=== PATIENT | male | born 1930 | race Caucasian/White ===

== ENCOUNTER 2018-07-13 14:02 | Observation (INO) ==
--- NOTE | 2018-07-13 14:22 | ED ---
HPI General Chief complaint: Weakness Stated complaint: Unsteady/lightheaded x3am Time Seen by Provider: 07/13/18 14:19 Source: patient and family Mode of arrival: wheelchair Limitations: no limitations History of Present Illness HPI Narrative: According to patient he has been developing generalized weakness since approximately 3 AM in the morning, when he attempted to get up and go use the bathroom. During this timeframe he nearly fell down on his way to the bathroom he had to hold onto the wall to avoid that....specifically denies . He is independently walking capable of this is new for him. Patient denied having any headaches, any slurred speech, any visual changes, any chest pain, any cough, any URI symptoms, any back pain abdominal pain nausea vomiting or diarrhea. MD Complaint: Reports generalized weakness and difficulty walking Onset (ago): hour(s) (12hrs) Duration: progressively worsening Location: Reports generalized Relieving factors: none Exacerbating factors: movement (Intubation he nearly falls when he tries to ambulate) Associated symptoms: Reports denies other symptoms; Denies chest pain, dark stools, diaphoresis, headaches, rash and syncope Related Data Home Medications Medication Instructions Recorded Confirmed Vitamin D3 07/13/18 amlodipine 10 mg PO DAILY 07/13/18 07/13/18 aspirin 325 mg PO DAILY 07/13/18 07/13/18 buspirone 5 mg PO DAILY 07/13/18 07/13/18 carvedilol 12.5 mg PO BID 07/13/18 07/13/18 coQ10 (ubiquinol) 07/13/18 furosemide [Lasix] 20 mg PO DAILY PRN 07/13/18 07/13/18 ipratropium bromide 2 spray INTRANASAL BID 07/13/18 07/13/18 montelukast 10 mg PO QPM 07/13/18 07/13/18 niacin 500 mg PO DAILY 07/13/18 07/13/18 oxycodone-acetaminophen 1 tab PO Q6H PRN 07/13/18 07/13/18 pravastatin 20 mg PO DAILY 07/13/18 07/13/18 timolol maleate 1 drp OPHTHALMIC (EYE) BID 07/13/18 07/13/18 Allergies Allergy/AdvReac Type Severity Reaction Status Date / Time naproxen Allergy Severe Chest Pain Verified 07/13/18 14:13 pitavastatin [From Livalo] Allergy Severe Hives Verified 07/13/18 14:20 simvastatin Allergy Severe Hiccups Verified 07/13/18 14:13 Review of Systems ROS: all other systems reviewed are negative [facility] History History Provided By: Patient Medical History Medical History History of CVA in adulthood (Acute) History of high cholesterol (Acute) Hx of coronary artery disease (Acute) Hx of primary hypertension (Acute) Surgical History Surgical History History of quadruple bypass (Acute) Hx of appendectomy (Acute) Hx of bilateral cataract extraction (Acute) Social History Social History Substance History: No History of Abuse Second Hand Smoke Exposure: No Smoking Status: Former smoker Tobacco Type: Cigarettes How Often Do You Have a Drink Containing Alcohol: Monthly or less Recent Travel in [facility] within the Last 8 Weeks: No Recent Out of Country Travel within the Last 8 Weeks: No Exam Narrative Exam Narrative: GENERAL: Elderly male, hard of hearing SKIN: Focused skin assessment warm/dry. HEAD: Atraumatic. Normocephalic. EYES: Pupils equal and round. No scleral icterus. No injection or drainage. ENT: No nasal bleeding or discharge. Mucous membranes pink and moist. NECK: Trachea midline. No JVD. CARDIOVASCULAR: Regular rate and rhythm. No murmur appreciated. RESPIRATORY: No accessory muscle use. Clear to auscultation. Breath sounds equal bilaterally. GASTROINTESTINAL: Abdomen soft, non-tender, nondistended. Hepatic and splenic margins not palpable. MUSCULOSKELETAL: No obvious deformities. No clubbing. No cyanosis. No edema. NEUROLOGICAL: Awake, alert and oriented x4. No obvious cranial nerve deficits. Motor grossly within normal limits. Normal speech. Patient has smooth rapid alternating movements, patient has smooth finger to nose, patient also has smooth heel to manzano. However patient is unable to perform tandem walking, and has a difficult time going from sitting to standing without some support PSYCHIATRIC: Appropriate mood and affect; insight and judgment normal. Course Initial Documented Vital Signs Temperature 98.3 F 07/13/18 14:09 Pulse Rate 76 07/13/18 14:09 Respiratory Rate 16 07/13/18 14:09 Blood Pressure 107/79 07/13/18 14:09 Pulse Oximetry 96 07/13/18 14:09 Last Documented Vital Signs Temperature 98.3 F 07/13/18 14:09 Pulse Rate 79 07/13/18 14:12 Respiratory Rate 16 07/13/18 14:12 Blood Pressure 136/93 H 07/13/18 14:12 Pulse Oximetry 95 07/13/18 14:19 Medical Decision Making MDM Narrative Medical decision making narrative: Lab interpretation: CBC shows no evidence of any leukocytosis anemia or abnormal platelet count. No left shift noted UA is negative for UTI Lecture lites are within normal limits, normal kidney liver and pancreatic functions. normal first set of cardiac enzymes negative, normal beta natruretic peptide. TSH screen Although in the normal range dangerously close to the lower Head CT read by radiologist as negative CT head noncontrast except diffuse atrophy. on reevaluation patient's condition remains unchanged....presented to dr ulloa who kindly accepted patient for admission Medical Screen Exam Complete: Yes Emergency Medical Condition: Yes Differential Diagnosis Differential Diagnosis: CVA versus TIA versus ICH versus STEMI versus non-STEMI versus UTI versus pneumonia versus electrolyte imbalance Medical Records Medical records reviewed: Yes I reviewed the patient's medical records. Patient's school speech language pathologist is Patient's primary care is [facility] Patient's neurologist Dr. Ryder Patient has an extensive cardiac history including hypercholesterolemia, hypertension, quadruple bypass/CABG, appendectomy, cataract extraction, CVA. Lab Data Lab results reviewed: Yes I reviewed the patient's lab results. Result diagrams: 07/13/18 14:35 07/13/18 14:35 Lab Results 07/13/18 07/13/18 07/13/18 Range/Units 14:35 14:35 14:35 CBC w Diff Auto diff final WBC 7.8 (4.0-11.0) th/mm3 RBC 4.51 (4.50-5.90) mil/mm3 Hgb 14.9 (13.0-17.0) gm/dL Hct 44.1 (39.0-51.0) % MCV 97.9 (80.0-100.0) fL MCH 33.0 (27.0-34.0) pg MCHC 33.7 (32.0-36.0) % RDW 12.9 (11.6-17.2) % Plt Count 213 (150-450) th/mm3 MPV 8.1 (7.0-11.0) fL Neut % (Auto) 70.6 H (16.0-70.0) % Lymph % (Auto) 16.3 (9.0-44.0) % [place] % (Auto) 9.6 H (0.0-8.0) % Eos % (Auto) 2.9 (0.0-4.0) % Baso % (Auto) 0.6 (0.0-2.0) % Neut # (Auto) 5.6 (1.8-7.7) th/mm3 Lymph # (Auto) 1.3 (1.0-4.8) th/mm3 [place] # (Auto) 0.7 (0.0-0.9) th/mm3 Eos # (Auto) 0.2 (0.0-0.4) th/mm3 Baso # (Auto) 0.0 (0.0-0.2) th/mm3 WBC Differential . Differential Comment . Sodium 136 (136-145) meq/L Potassium 3.9 (3.5-5.1) meq/L Chloride 104 (98-107) meq/L Carbon Dioxide 25.6 (21.0-32.0) meq/L Anion Gap 6 (5-15) meq/L BUN 14 (7-18) mg/dL Creatinine 0.96 (0.60-1.30) mg/dL Estimated GFR 74 L (>89) mL/min Random Glucose 161 H (74-106) mg/dL Calcium 8.2 L (8.5-10.1) mg/dL Total Bilirubin 0.3 (0.2-1.0) mg/dL AST 30 (15-37) U/L ALT 39 (12-78) U/L Alkaline Phosphatase 286 H (45-117) U/L Total Creatine Kinase 83 (39-308) U/L Troponin I Less than 0.02 L (0.02-0.05) ng/mL B-Natriuretic Peptide 101 H (0-100) pg/mL Total Protein 7.2 (6.4-8.2) g/dL Albumin 3.7 (3.4-5.0) g/dL TSH 0.726 (0.358-3.740) uIU/mL Ur Collection Type Urine Color (Yellw/Straw) Urine Clarity (Clear) Urine pH (5.0-8.5) Ur Specific [place] (1.002-1.035) Urine Protein (Neg-Trace) mg/dL Urine Glucose (UA) (Negative) mg/dL Urine Ketones (Negative) mg/dL Urine Occult Blood (Negative) Urine Nitrate (Negative) Urine Bilirubin (Negative) Urine Urobilinogen (Less than 2) mg/dL Ur Leukocyte Esterase (Negative) Ur Squamous Epith Cells (0-5) /hpf Micro UA Comment Ur Microscopic Review Urine Culture Comments Urine Collection Time hours 07/13/18 Range/Units 14:35 CBC w Diff WBC (4.0-11.0) th/mm3 RBC (4.50-5.90) mil/mm3 Hgb (13.0-17.0) gm/dL Hct (39.0-51.0) % MCV (80.0-100.0) fL MCH (27.0-34.0) pg MCHC (32.0-36.0) % RDW (11.6-17.2) % Plt Count (150-450) th/mm3 MPV (7.0-11.0) fL Neut % (Auto) (16.0-70.0) % Lymph % (Auto) (9.0-44.0) % [place] % (Auto) (0.0-8.0) % Eos % (Auto) (0.0-4.0) % Baso % (Auto) (0.0-2.0) % Neut # (Auto) (1.8-7.7) th/mm3 Lymph # (Auto) (1.0-4.8) th/mm3 [place] # (Auto) (0.0-0.9) th/mm3 Eos # (Auto) (0.0-0.4) th/mm3 Baso # (Auto) (0.0-0.2) th/mm3 WBC Differential Differential Comment Sodium (136-145) meq/L Potassium (3.5-5.1) meq/L Chloride (98-107) meq/L Carbon Dioxide (21.0-32.0) meq/L Anion Gap (5-15) meq/L BUN (7-18) mg/dL Creatinine (0.60-1.30) mg/dL Estimated GFR (>89) mL/min Random Glucose (74-106) mg/dL Calcium (8.5-10.1) mg/dL Total Bilirubin (0.2-1.0) mg/dL AST (15-37) U/L ALT (12-78) U/L Alkaline Phosphatase (45-117) U/L Total Creatine Kinase (39-308) U/L Troponin I (0.02-0.05) ng/mL B-Natriuretic Peptide (0-100) pg/mL Total Protein (6.4-8.2) g/dL Albumin (3.4-5.0) g/dL TSH (0.358-3.740) uIU/mL Ur Collection Type Clean catch Urine Color Yellow (Yellw/Straw) Urine Clarity Clear (Clear) Urine pH 7.0 (5.0-8.5) Ur Specific [place] 1.010 (1.002-1.035) Urine Protein Negative (Neg-Trace) mg/dL Urine Glucose (UA) Negative (Negative) mg/dL Urine Ketones Negative (Negative) mg/dL Urine Occult Blood Negative (Negative) Urine Nitrate Negative (Negative) Urine Bilirubin Negative (Negative) Urine Urobilinogen 0.2 (Less than 2) mg/dL Ur Leukocyte Esterase Negative (Negative) Ur Squamous Epith Cells 0-5 (0-5) /hpf Micro UA Comment Culture not ind Ur Microscopic Review Microscopic reviewed Urine Culture Comments Culture not ind Urine Collection Time 1435 hours Imaging Data Attestation: I personally reviewed and interpreted this imaging study as follows : Radiologist's impression: Head CT 07/13/18 14:19 CONCLUSION: 1. Negative CT Head non contrast except diffuse atrophy. . ECG Data EKG Prior to Arrival: No Attestation: I personally reviewed and interpreted this ECG as follows: Prior ECG tracings: not available for review Interpretation: Normal sinus rhythm, 74 bpm, left axis deviation, no acute ST elevation KS pattern noted. Discharge Plan Discharge Disposition Patient Disposition: 30 Still Patient Discharge Condition Condition: Stable Discharge Details Diagnosis: Weakness Physicians Team ED Provider: Rubin Huang Primary Care Provider: Mode Fox Rxs /Orders / Referrals /Forms Prescriptions: No Action buspirone 5 mg Tablet 5 mg PO DAILY RF: 0 carvedilol 12.5 mg Tablet 12.5 mg PO BID RF: 0 aspirin 325 mg Tablet 325 mg PO DAILY RF: 0 amlodipine 10 mg Tablet 10 mg PO DAILY RF: 0 timolol maleate 0.25 % Drops 1 drp OPHTHALMIC (EYE) BID RF: 0 niacin 500 mg Tablet 500 mg PO DAILY RF: 0 montelukast 10 mg Tablet 10 mg PO QPM RF: 0 pravastatin 20 mg Tablet 20 mg PO DAILY RF: 0 furosemide [Lasix] 20 mg Tablet 20 mg PO DAILY PRN (Reason: Edema) RF: 0 ipratropium bromide 0.03 % [place],Non-Aerosol 2 spray INTRANASAL BID RF: 0 coQ10 (ubiquinol) 100 mg Capsule RF: 0 Vitamin D3 RF: 0 oxycodone-acetaminophen 10-325 mg Tablet 1 tab PO Q6H PRN (Reason: Pain (Scale Score 7-10)) RF: 0 Status ED Status: Pending Admission
[2018-07-13 14:43] LABS: Baso % (Auto) 0.6 % (0.0-2.0); Eos # (Auto) 0.2 th/mm3 (0.0-0.4); Eos % (Auto) 2.9 % (0.0-4.0); Hematocrit 44.1 % (39.0-51.0); Hemoglobin 14.9 gm/dL (13.0-17.0); Lymph # (Auto) 1.3 th/mm3 (1.0-4.8); Lymph % (Auto) 16.3 % (9.0-44.0); Mean Corpuscular HGB Conc 33.7 % (32.0-36.0); Mean Corpuscular Volume 97.9 fL (80.0-100.0); Mean Platelet Volume 8.1 fL (7.0-11.0); Mono # (Auto) 0.7 th/mm3 (0.0-0.9); Mono % (Auto) 9.6 % (0.0-8.0); Neut # (Auto) 5.6 th/mm3 (1.8-7.7); Neut % (Auto) 70.6 % (16.0-70.0); Platelet Count 213 th/mm3 (150-450); Red Blood Count 4.51 mil/mm3 (4.50-5.90); Red Cell Distribution Width 12.9 % (11.6-17.2); White Blood Count 7.8 th/mm3 (4.0-11.0)
[2018-07-13 14:48] LABS: Bilirubin,Urine Negative (Negative); Clarity,Urine Clear (Clear); Color,Urine Yellow (Yellw/Straw); Glucose,Urine (UA) Negative (Negative); Leukocyte Esterase,Urine Negative (Negative); Nitrite,Urine Negative (Negative); Urobilinogen,Urine 0.2 mg/dL (Less than 2)
[2018-07-13 14:50] LABS: Collection Time,Urine 1435 hours
[2018-07-13 14:51] LABS: Chloride 104 meq/L (98-107); Potassium 3.9 meq/L (3.5-5.1); Sodium 136 meq/L (136-145)
[2018-07-13 14:52] LABS: Squamous Epithelial Cell,Urine 0-5 /hpf (0-5)
[2018-07-13 14:54] LABS: Calcium 8.2 mg/dL (8.5-10.1)
[2018-07-13 14:55] LABS: Albumin 3.7 g/dL (3.4-5.0); Anion Gap 6 meq/L (5-15); Blood Urea Nitrogen 14 mg/dL (7-18); Carbon Dioxide 25.6 meq/L (21.0-32.0); Glucose,Random 161 mg/dL (74-106)
[2018-07-13 14:58] LABS: Alanine Aminotransferase 39 U/L (12-78); Aspartate Aminotransferase 30 U/L (15-37); Glomerular Filtration Rate 74 mL/min (>89)
[2018-07-13 15:00] LABS: Total Protein 7.2 g/dL (6.4-8.2)
[2018-07-13 15:01] LABS: Alkaline Phosphatase 286 U/L (45-117)
--- NOTE | 2018-07-13 15:01 | CT ---
EXAM DATE: 07/13/2018 2:57 PM EDT AGE/SEX: 87 years / Male INDICATIONS: Generalized weakness. CLINICAL DATA: This is the patient's initial encounter. Patient reports that signs and symptoms have been present for 1 day and indicates a pain score of 0/10. MEDICAL/SURGICAL HISTORY: Cardiovascular disease. Hypercholesterolemia. Cerebrovascular disease. Hypertension. Appendectomy. CABG. RADIATION DOSE: 51.79 CTDI (mGy) COMPARISON: No prior exams available for comparison. TECHNIQUE: CT of the head without contrast. Using automated exposure control and adjustment of the mA and/or kV according to patient size, radiation dose was kept as low as reasonably achievable to ob tain optimal diagnostic quality images. DICOM format image data is available electronically for revi ew and comparison. FINDINGS: Cerebrum: There is diffuse atrophy throughout the brain The ventricles are normal for age. No evide nce of midline shift, mass lesion, hemorrhage or acute infarction. No extraaxial fluid collections a re seen. Posterior Fossa: The cerebellum and brainstem are intact. The 4th ventricle is midline. The cerebe llopontine angle is unremarkable. Extracranial: The visualized portion of the orbits is intact. Skull: The calvaria is intact. No evidence of skull fracture. CONCLUSION: 1. Negative CT Head non contrast except diffuse atrophy. . Electronically signed by: Shashi Harrison MD 07/13/2018 2:59 PM EDT
[2018-07-13 15:07] LABS: Creatine Kinase 83 U/L (39-308)
[2018-07-13 15:09] LABS: Thyroid Stimulating Hormone 0.726 uIU/mL (0.358-3.740)
[2018-07-13] MEDS ORDERED: Insulin NovoLOG Aspart Correctional Sugar Inj SQ PRN (15:57)
[2018-07-13] MEDS ORDERED: Dextrose 50% in Water 50 ML Vial IV.PUSH PRN (15:57)
--- NOTE | 2018-07-13 16:20 | P.HPIM ---
History of Present Illness Service: [facility] Primary Care Physician: Mode Fox MD History of Present Illness: This is an 87-year-old male with past medical history significant for coronary artery disease with triple bypass, dyslipidemia, hypertension, and CVA. He presented to the [place] emergency room due to weakness and unsteady gait. His previous CVA overall recovered from this completely with no major residual side effects per patient and . Primary historian is patient with I had a detailed from . He reports that at this time he is feeling better. He states that his symptoms started this morning at 0300 when he got up to go to the bathroom. He felt very weak and dizzy and had to sit back down to regain his balance. He then went back to bed woke up and still continued to feel weak. Throughout the whole day today he has been having a worsening unsteady gait. And started reporting to his that he was having difficulty with feeling in the left side of his face. He also reports that his vision in his left eye had worsened as well during the day. He reports that now his symptoms are improving and he wants to get out of the hospital however he is willing to stay for further workup and to appease his . He denies any slurring of his speech. Denies any difficulty with finding words. He denies any more weakness but still does have the residual difficulty with vision in his left eye. Denies any headache, denies any lightheadedness, denies any weakness in his arms or legs at this point. - Diagnosis (1) TIA (transient ischemic attack) (2) Weakness Review of Systems Constitutional: Reports weakness, Denies body ache(s), Denies chills, Denies excessive sweating, Denies fever(s), Denies headache(s), Denies lack of energy, Denies night sweats, Denies weight loss Eyes: Reports blurry vision, Reports change in vision, Reports loss of vision, Denies blind spots, Denies bulging eyes, Denies double vision, Denies discharge , Denies irritation Ears, Nose, Mouth, and Throat: Reports dizziness, Reports poor balance, Denies abnormal hearing, Denies bleeding gums, Denies change in voice, Denies dry mouth , Denies ear pain, Denies hoarseness Cardiovascular: Denies chest pain, Denies chest pain at rest, Denies fainting, Denies generalized swelling, Denies irregular heart rhythm, Denies shortness of breath Respiratory: Denies chest congestion, Denies cough, Denies shortness of breath with activity Gastrointestinal: Denies abdominal pain, Denies black, tarry stools, Denies bloating, Denies change in bowel habits Musculoskeletal: Reports abnormal walking, Reports back pain, Reports joint pain , Reports limited joint movement, Reports muscle weakness, Reports numbness Neurologic: Reports abnormal hearing (Requires hearing aids), Reports dizziness , Reports localized weakness, Reports numbness, Reports unsteadiness, Reports weakness, Denies fainting, Denies headache(s) Psychiatric: Denies anxiety, Denies depression PMFSH - History History Provided By: Patient - Medical History Medical History: Medical History (Last Reviewed 07/13/18 @ 16:12 by Karson Guzman MD) History of CVA in adulthood History of high cholesterol Hx of coronary artery disease Hx of primary hypertension - Surgical History Surgical History: Surgical History (Last Reviewed 07/13/18 @ 16:12 by Karson Guzman MD) History of quadruple bypass Hx of appendectomy Hx of bilateral cataract extraction - Family History Family History: Family History (Last Updated 07/13/18 @ 16:13 by Karson Guzman MD) Other Heart disease - Social History I have reviewed the patient's Social History: Yes - Tobacco History Second Hand Smoke Exposure: No Tobacco Use In Past 30 Days: No Smoking Status: Former smoker Tobacco Type: Cigarettes - Alcohol History How Often Do You Have a Drink Containing Alcohol: Monthly or less - Substance Use History Substance History: No History of Abuse - Travel History Recent Travel in the [place] Within the Last 8 Weeks: No Recent Travel Out of the Country Within the Last 8 Weeks: No - Immunization History Tetanus Immunization: <5 Years Medications and Allergies Active Medications: Active Medications Sodium Chloride (Ns Flush) 2 ml IV.FLUSH PRN PRN PRN Reason: FLUSH AFTER USING IV ACCESS Allergies Allergy/AdvReac Type Severity Reaction Status Date / Time naproxen Allergy Severe Chest Pain Verified 07/13/18 14:13 pitavastatin [From Livalo] Allergy Severe Hives Verified 07/13/18 14:20 simvastatin Allergy Severe Hiccups Verified 07/13/18 14:13 Home Medications Medication Instructions Recorded Confirmed Type Vitamin D3 07/13/18 History amlodipine 10 mg PO DAILY 07/13/18 07/13/18 History aspirin 325 mg PO DAILY 07/13/18 07/13/18 History buspirone 5 mg PO DAILY 07/13/18 07/13/18 History carvedilol 12.5 mg PO BID 07/13/18 07/13/18 History coQ10 (ubiquinol) 07/13/18 History furosemide [Lasix] 20 mg PO DAILY PRN 07/13/18 07/13/18 History ipratropium bromide 2 spray INTRANASAL BID 07/13/18 07/13/18 History montelukast 10 mg PO QPM 07/13/18 07/13/18 History niacin 500 mg PO DAILY 07/13/18 07/13/18 History oxycodone-acetaminophen 1 tab PO Q6H PRN 07/13/18 07/13/18 History pravastatin 20 mg PO DAILY 07/13/18 07/13/18 History timolol maleate 1 drp OPHTHALMIC (EYE) BID 07/13/18 07/13/18 History Exam Vital signs: Vital Signs 07/13/18 14:09 07/13/18 14:12 07/13/18 14:19 Temperature 98.3 F Pulse Rate 76 79 Respiratory Rate 16 16 Blood Pressure 107/79 136/93 H Pulse Oximetry 96 95 95 Intake & Output 07/12/18 07/13/18 07/13/18 18:59 06:59 18:59 Weight 82.1 kg - Constitutional no acute distress, obese - Routine HEENT Exam Head: Present: normocephalic, atraumatic Eye: Present: EOMI, PERRL, normal accommodation ENT: Present: mucous membranes moist, dentition normal, external ear normal, TM' s clear bilaterally - Routine Neck Exam Present: supple, full ROM, swelling, trachea midline. Absent: carotid bruit, lymphadenopathy, tenderness - Routine Chest/Breast/Axilla Exam Chest wall: Absent: tenderness - Routine Respiratory Exam Present: CTA bilaterally. Absent: accessory muscle use - Routine Cardiovascular Exam Present: RRR - Routine Abdominal Exam Present: soft, normoactive bowel sounds. Absent: tenderness - Routine Extremities Exam Present: full ROM, normal capillary refill. Absent: cyanosis, clubbing, edema, Nemesio's sign - Routine Skin Exam Present: intact, dry - Routine Neurological Exam Present: alert, oriented X3, CN II-XII intact, normal reflexes, moving all extremities, hearing grossly intact, normal speech. Absent: sensory deficit, motor deficit, pronator drift, altered mental status, nystagmus, vision grossly intact, facial asymmetry, tremors, asterixis Results - Labs CBC & Chem 7: 07/13/18 14:35 07/13/18 14:35 Labs: Short CBC 07/13/18 Range/Units 14:35 WBC 7.8 (4.0-11.0) th/mm3 Hgb 14.9 (13.0-17.0) gm/dL Hct 44.1 (39.0-51.0) % Plt Count 213 (150-450) th/mm3 BMP 07/13/18 14:35 Sodium 136 Potassium 3.9 Chloride 104 Carbon Dioxide 25.6 BUN 14 Creatinine 0.96 Calcium 8.2 L Cardiac Enzymes 07/13/18 Range/Units 14:35 Total Creatine Kinase 83 (39-308) U/L Troponin I Less than 0.02 L (0.02-0.05) ng/mL Liver Function 07/13/18 Range/Units 14:35 Total Bilirubin 0.3 (0.2-1.0) mg/dL AST 30 (15-37) U/L ALT 39 (12-78) U/L Alkaline Phosphatase 286 H (45-117) U/L Albumin 3.7 (3.4-5.0) g/dL Urine 07/13/18 Range/Units 14:35 Urine Color Yellow (Yellw/Straw) Urine Clarity Clear (Clear) Urine pH 7.0 (5.0-8.5) Ur Specific [place] 1.010 (1.002-1.035) Urine Protein Negative (Neg-Trace) mg/dL Urine Glucose (UA) Negative (Negative) mg/dL - Imaging Impressions Head CT 07/13/18 14:19 CONCLUSION: 1. Negative CT Head non contrast except diffuse atrophy. . Caprini VTE Risk Assessment Caprini VTE Risk Assessment: Moderate/High Risk (score >= 2) (SCDs and heparin being used currently) Caprini Risk Assessment Model: Point Value = 1 Point Value = 2 Point Value = 3 Point Value = 5 Age 41-60 Minor surgery BMI > 25 kg/m2 Swollen legs Varicose veins or History of unexplained or recurrent spontaneous Oral contraceptives or hormone replacement Sepsis (< 1 month) Serious lung disease, including pneumonia (< 1 month) Abnormal pulmonary function Acute myocardial infarction Congestive heart failure (< 1 month) History of inflammatory bowel disease Medical patient at bed rest Age 61-74 Arthroscopic surgery Major open surgery (> 45 min) Laparoscopic surgery (> 45 min) Malignancy Confined to bed (> 72 hours) Immobilizing plaster cast Central venous access Age >= 75 History of VTE Family history of VTE Factor V Leiden Prothrombin [id number] Lupus anticoagulant Anticardiolipin antibodies Elevated serum homocysteine Heparin-induced thrombocytopenia Other congenital or acquired thrombophilia Stroke (< 1 month) Elective arthroplasty Hip, pelvis, or leg fracture Acute spinal cord injury (< 1 month) Prophylaxis Regimen: Total Risk Factor Score Risk Level Prophylaxis Regimen 0-1 Low Early ambulation 2 Moderate Order ONE of the following: *Sequential Compression Device (SCD) *Heparin 5000 units SQ BID 3-4 Higher Order ONE of the following medications: *Heparin 5000 units SQ TID *Enoxaparin/Lovenox 40 mg SQ daily (WT < 150 kg, CrCl > 30 mL/min) *Enoxaparin/Lovenox 30 mg SQ daily (WT < 150 kg, CrCl > 10-29 mL/min) *Enoxaparin/Lovenox 30 mg SQ BID (WT < 150 kg, CrCl > 30 mL/min) AND/OR *Sequential Compression Device (SCD) 5 or more Highest Order ONE of the following medications: *Heparin 5000 units SQ TID (Preferred with Epidurals) *Enoxaparin/Lovenox 40 mg SQ daily (WT < 150 kg, CrCl > 30 mL/min) *Enoxaparin/Lovenox 30 mg SQ daily (WT < 150 kg, CrCl > 10-29 mL/min) *Enoxaparin/Lovenox 30 mg SQ BID (WT < 150 kg, CrCl > 30 mL/min) AND *Sequential Compression Device (SCD) Assessment and Plan - Assessment (1) TIA (transient ischemic attack) Code(s): G45.9 - Transient cerebral ischemic attack, unspecified Status: Acute (2) Weakness Code(s): R53.1 - Weakness Status: Acute - Plan This is an 87-year-old male with past medical history significant for coronary artery disease with triple bypass, dyslipidemia, hypertension, and CVA. Being admitted for generalized weakness and TIA workup. 1. TIA -Consult to neurology place, recommendations appreciated -CT performed with no acute hemorrhage seen -MRI pending -Neurochecks -PT OT -Placed on telemetry -Has passed swallow test will allow patient to eat at this time 2. Hypertension -Continue home medications after negative MRI otherwise we will hold 3. Dyslipidemia -Holding home medications at this time due to reported allergy 4. Coronary artery disease -Monitor at this time 5. Chronic low back pain -Continue home medication of Oto DVT prophylaxis with SCDs and heparin Code Status: Full code Discharge Planning: Pending MRI results and recommendations from neurology
[2018-07-13] MEDS: Heparin - SQ 10,000 UNITS/ML Vial SQ SCH (16:48)
[2018-07-13] MEDS: Montelukast 10 MG Tablet PO SCH (17:21)
[2018-07-13] MEDS: Sod Chloride 0.9% Inj 1,000 ML IV.CONT SCH (17:22)
[2018-07-13] MEDS: Carvedilol 12.5 MG Tablet PO SCH (20:37)
[2018-07-13] MEDS: oxyCODONE/Acetaminophen 10/325 Tablet PO PRN (20:40)
--- NOTE | 2018-07-13 22:04 | MB ---
cc: Javad Oakes MD DATE: 07/13/2018 HISTORY OF PRESENT ILLNESS: An 87-year-old left-handed man with [id number] diabetes, CABG, stroke, right hemiparesis some years ago. He takes 325 of aspirin a day. He woke up at 3 a.m. this morning, felt dizzy and imbalanced and has been that way since that time. No paralysis with it. SOCIAL HISTORY: He is not a smoker. He occasionally drinks. He lives with his . FAMILY HISTORY: Positive cancer in his mother. Negative for seizure or stroke. REVIEW OF SYSTEMS: Denies any history of hypertension, hypercholesterolemia, atrial fibrillation, Coumadin, renal, hepatic or pulmonary disease, thyroid disease, lupus, ulcer, cancer, seizure. MEDICATIONS AT HOME: He is on: 1. Oxycodone. 2. BuSpar. 3. Lasix. 4. Timolol. 5. Pravastatin. 6. Niacin. 7. Montelukast. 8. Ipratropium. 9. Carvedilol. 10. Aspirin 325. 11. Amlodipine. Here, he continues on his aspirin. PHYSICAL EXAMINATION: VITAL SIGNS: Sinus rhythm, 161/74. NECK: There are no carotid bruits. HEART: Regular rhythm. I do not detect a murmur. NEUROLOGIC: Pupils are equal. Visual clarke are full. Extraocular movements are intact without nystagmus. Face is symmetric with normal sensation. Tongue is midline. There is no drift. He has normal strength in the upper and lower extremities bilaterally. DTRs trace throughout. Toes downgoing bilaterally. Pinprick is intact throughout. He is not ataxic on deihpq-kv-[id number] or kye-ho-qqmrpy. His Hallpike maneuver was positive to the right the first time and after doing the Urmila maneuver x 1 starting on the right, even worse on the right the next 2 times and I did the Urmila maneuver x 1, but it seems to just make him worse and he has severe rotatory nystagmus with his head to the right on Hallpike maneuver. There was not a great amount of lag there, just a second or two. LABORATORY DATA: CAT scan of the brain shows an old left infarct of the frontal horn of the lateral ventricle, a lacunar type. CBC is normal. UA negative. Basic metabolic profile normal. Glucose 161. LFTs normal. Troponin negative. Thyroid normal. ASSESSMENT AND PLAN: Likely right benign positional vertigo. We will check an MRI of the brain and MRA of the [place] of [place] and neck. If those are negative, he should continue with vestibular rehabilitation. We will try him on some meclizine. Another possibility would be a posterior circulation cerebellar infarct, but I think less likely. MD SHAY Lemos/galileo , 09:28 PM , 09:33 PM
[2018-07-14] MEDS: Heparin - SQ 10,000 UNITS/ML Vial SQ SCH ×3 (01:12→16:50)
[2018-07-14] MEDS: Sod Chloride 0.9% Inj 1,000 ML IV.CONT SCH (07:07)
[2018-07-14 07:09] LABS: Baso # (Auto) 0.1 th/mm3 (0.0-0.2); Eos # (Auto) 0.3 th/mm3 (0.0-0.4); Eos % (Auto) 3.8 % (0.0-4.0); Hematocrit 38.6 % (39.0-51.0); Hemoglobin 13.5 gm/dL (13.0-17.0); Lymph # (Auto) 1.7 th/mm3 (1.0-4.8); Lymph % (Auto) 23.6 % (9.0-44.0); Mean Corpuscular Hemoglobin 33.4 pg (27.0-34.0); Mean Corpuscular Volume 95.3 fL (80.0-100.0); Mean Platelet Volume 8.8 fL (7.0-11.0); Mono # (Auto) 0.6 th/mm3 (0.0-0.9); Mono % (Auto) 8.8 % (0.0-8.0); Neut # (Auto) 4.4 th/mm3 (1.8-7.7); Neut % (Auto) 62.8 % (16.0-70.0); Platelet Count 175 th/mm3 (150-450); Red Blood Count 4.05 mil/mm3 (4.50-5.90); Red Cell Distribution Width 13.1 % (11.6-17.2); White Blood Count 7.1 th/mm3 (4.0-11.0)
[2018-07-14 07:21] LABS: Potassium 3.7 meq/L (3.5-5.1)
[2018-07-14 07:26] LABS: Calcium 8.1 mg/dL (8.5-10.1)
[2018-07-14 07:27] LABS: Carbon Dioxide 27.5 meq/L (21.0-32.0)
--- NOTE | 2018-07-14 08:06 | P.PNIM ---
Subjective Interval history: Pt seen and examined. present in the room. Patient up in chair and reports he is still feeling dizzy and off-balance but it is better when he is still. He notes maybe modest improvement with the meclizine. He states when Dr. Oakes performed his physical exam yesterday he became extremely dizzy like the room was spinning and when PT was working with him this morning he was very dizzy. He denies diplopia, slurred speech, unilateral weakness, chest pain, or shortness of breath. He is nervous to go home if he is this dizzy and off balance. Physical Exam Vital signs: Vital Signs 07/13/18 14:09 07/13/18 14:12 07/13/18 14:19 Temperature 98.3 F Pulse Rate 76 79 Respiratory Rate 16 16 Blood Pressure 107/79 136/93 H Pulse Oximetry 96 95 95 07/13/18 20:00 07/13/18 21:30 07/14/18 00:00 Temperature 97.4 F L 96.8 F L Pulse Rate 68 60 Respiratory Rate 18 18 18 Blood Pressure 161/74 H 133/67 Pulse Oximetry 96 96 07/14/18 00:03 07/14/18 04:00 Temperature Pulse Rate 56 L 56 L Respiratory Rate Blood Pressure Pulse Oximetry Intake & Output 07/13/18 07/14/18 07/14/18 18:59 06:59 18:59 Intake Total 1200 / 1200 Output Total 350 / 350 675 / 675 Balance -350 / -350 525 / 525 Weight 78.2 kg 78.2 kg Intake: IV 1000 / 1000 NS Inj 1,000 ML @ 70 mls/hr IV. 1000 / 1000 CONT .[id number] [facility] Rx#: [id number] Oral 200 / 200 Output: Urine 350 / 350 675 / 675 Other: Date of Last Bowel Movement 07/13/18 07/13/18 Weight On Admission 78.2 kg Narrative: GENERAL: WN, WD elderly male sitting up in chair in NAD. SKIN: Warm and dry. HEENT: AT/NC. Pupils pinpoint bilaterally. MMM. NECK: Supple no tender LAD or JVD. HEART: RRR no m/r/g. LUNGS: CTAB without wheezes or crackles. ABDOMEN: +BS, soft, NT, ND. EXTREMITIES: No LE edema. Trace pedal pulses. NEURO: Awake and alert. CN II-XII intact. Left lateral gaze nystagmus. Bilateral strength 5/5. Sensation intact. Results - Labs CBC & Chem 7: 07/14/18 05:25 07/14/18 05:25 Laboratory Results - last 24 hr 07/13/18 07/13/18 07/13/18 14:35 14:35 14:35 CBC w Diff Auto diff final WBC 7.8 RBC 4.51 Hgb 14.9 Hct 44.1 MCV 97.9 MCH 33.0 MCHC 33.7 RDW 12.9 Plt Count 213 MPV 8.1 Neut % (Auto) 70.6 H Lymph % (Auto) 16.3 [place] % (Auto) 9.6 H Eos % (Auto) 2.9 Baso % (Auto) 0.6 Neut # (Auto) 5.6 Lymph # (Auto) 1.3 [place] # (Auto) 0.7 Eos # (Auto) 0.2 Baso # (Auto) 0.0 WBC Differential . Differential Comment . Sodium 136 Potassium 3.9 Chloride 104 Carbon Dioxide 25.6 Anion Gap 6 BUN 14 Creatinine 0.96 Estimated GFR 74 L Random Glucose 161 H Calcium 8.2 L Total Bilirubin 0.3 AST 30 ALT 39 Alkaline Phosphatase 286 H Total Creatine Kinase 83 Troponin I Less than 0.02 L B-Natriuretic Peptide 101 H Total Protein 7.2 Albumin 3.7 TSH 0.726 Ur Collection Type Urine Color Urine Clarity Urine pH Ur Specific [place] Urine Protein Urine Glucose (UA) Urine Ketones Urine Occult Blood Urine Nitrate Urine Bilirubin Urine Urobilinogen Ur Leukocyte Esterase Ur Squamous Epith Cells Micro UA Comment Ur Microscopic Review Urine Culture Comments Urine Collection Time 07/13/18 07/14/18 07/14/18 14:35 05:25 05:25 CBC w Diff Auto diff final WBC 7.1 RBC 4.05 L Hgb 13.5 Hct 38.6 L MCV 95.3 MCH 33.4 MCHC 35.0 RDW 13.1 Plt Count 175 MPV 8.8 Neut % (Auto) 62.8 Lymph % (Auto) 23.6 [place] % (Auto) 8.8 H Eos % (Auto) 3.8 Baso % (Auto) 1.0 Neut # (Auto) 4.4 Lymph # (Auto) 1.7 [place] # (Auto) 0.6 Eos # (Auto) 0.3 Baso # (Auto) 0.1 WBC Differential . Differential Comment . Sodium 140 Potassium 3.7 Chloride 106 Carbon Dioxide 27.5 Anion Gap 7 BUN 11 Creatinine 0.93 Estimated GFR 77 L Random Glucose 93 Calcium 8.1 L Total Bilirubin AST ALT Alkaline Phosphatase Total Creatine Kinase Troponin I B-Natriuretic Peptide Total Protein Albumin TSH Ur Collection Type Clean catch Urine Color Yellow Urine Clarity Clear Urine pH 7.0 Ur Specific [place] 1.010 Urine Protein Negative Urine Glucose (UA) Negative Urine Ketones Negative Urine Occult Blood Negative Urine Nitrate Negative Urine Bilirubin Negative Urine Urobilinogen 0.2 Ur Leukocyte Esterase Negative Ur Squamous Epith Cells 0-5 Micro UA Comment Culture not ind Ur Microscopic Review Microscopic reviewed Urine Culture Comments Culture not ind Urine Collection Time 1435 - Imaging Impressions Head CT 07/13/18 14:19 CONCLUSION: 1. Negative CT Head non contrast except diffuse atrophy. . Assessment and Plan - Assessment (1) Vertigo Code(s): R42 - Dizziness and giddiness Status: Acute - Plan 87 year old male with history of DM, CAD with prior CABG, HLD, HTN, and CVA right right hemiparesis admitted yesterday for weakness, dizziness, and unsteady gait. 1. Dizziness, weakness likely BPPV - Labs unremarkable, no signs of infection - CT head showing diffuse atrophy otherwise negative - Neuro consulted. Patient with positive Hallpike and Urmila maneuvers concerning for BPPV - Started on meclizine with modest improvement - Awaiting MRI and MRA to r/o posterior CVA - PT following 2. DM - SSI per protocol 3. HTN - BPs a little labile but overall stable - Continue home Norvasc and Coreg and adjust as needed 4. Anxiety - Continue home Buspar 5. HLD - Continue home statin 7. Prior CVA - Continue home statin and ASA DVT prophylaxis: Heparin Code Status: FULL Discussed Condition With: Patient and his Discharge Planning: Pending results of MRI/MRA as well as PT recommendations since patient is very off-balance
[2018-07-14] MEDS: amLODIPine 10 MG Tablet PO SCH (08:51)
[2018-07-14] MEDS: Aspirin 325 MG Tablet PO SCH (08:51)
[2018-07-14] MEDS: Carvedilol 12.5 MG Tablet PO SCH ×2 (08:52→21:45)
[2018-07-14] MEDS: oxyCODONE/Acetaminophen 10/325 Tablet PO PRN ×3 (08:53→21:50)
[2018-07-14 11:41] LABS: Chol/HDL Ratio 2.52 Ratio; HDL Cholesterol 48.8 mg/dL (40.0-60.0)
[2018-07-14] MEDS ORDERED: Gadobutrol PF 10 MMOL/10 ML Vial (for RAD) IV.SIG ONE (13:48)
--- NOTE | 2018-07-14 14:04 | MR ---
EXAM DATE: 07/14/2018 1:52 PM EDT AGE/SEX: 87 years / Male INDICATIONS: Dizziness. TIA. CLINICAL DATA: This is the patient's subsequent encounter. Patient reports that signs and symptoms h ave been present for 2 days and indicates a pain score of 0/10. MEDICAL/SURGICAL HISTORY: Diabetes. Hypertension. Cerebrovascular disease. CABG. Appendectom y. COMPARISON: [facility], MR HEAD W & W/O CONTRAST, 07/14/2018. . TECHNIQUE: 3D [id number] MRA was performed. Source images, multiplanar STS MIP, and 3D volum e MIP reconstructions were reviewed. FINDINGS: Extensive atherosclerotic disease is present in the cavernous carotid with a focal stenosis is eviden t compromising the lumen by approximately 75%. There is nonvisualization of the A1 segment of the rig ht anterior cerebral artery. There is a 80-90% focal stenosis at the origin of the left posterior cerebral artery. Extensive atherosclerotic vascular disease is present Basilar artery is patent CONCLUSION: 1. Extensive atherosclerotic vascular disease as above. 2. 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 90% stenosis of the left posterior cerebral artery and its origin 4. Nonvisualization of the A1 segment of the right anterior cerebral artery. Electronically signed by: Jonah Swanson MD 07/14/2018 2:02 PM EDT
--- NOTE | 2018-07-14 14:27 | MR ---
EXAM DATE: 07/14/2018 2:18 PM EDT AGE/SEX: 87 years / Male INDICATIONS: Stenosis. CLINICAL DATA: This is the patient's subsequent encounter. Patient reports that signs and symptoms h ave been present for 2 days and indicates a pain score of 0/10. MEDICAL/SURGICAL HISTORY: Cerebrovascular disease. Diabetes. Hypertension. CABG. Appendectom y. COMPARISON: No prior exams available for comparison. TECHNIQUE: 10 ml Gadavist (gadobutrol) contrast infused MRA (single exam dose) of the extracranial circulation was performed using a neurovascular coil. Postprocessing was performed, including rotati ng sub-volume maximum intensity projections of each carotid artery, rotating full-volume maximum inte nsity projections of both carotid arteries, sagittal and coronal sliding thin-slab reformations of ea ch carotid artery, and left oblique sliding thin-slab reformation through the aortic arch to include the origin of the arch branch vessels. FINDINGS: Aortic Arch : There is a three-vessel origin of the great vessels from the aorta. No evidence of o stial narrowing. Right Carotid : The common carotid artery is intact. The carotid bulb has a normal configuration wi thout ulceration or narrowing. The internal carotid artery lumen is smooth without stenosis. The ex ternal carotid artery is intact. Left Carotid : The common carotid artery is intact. The carotid bulb has a normal configuration wit hout ulceration or narrowing. The internal carotid artery lumen is smooth without stenosis. The ext ernal carotid artery is intact. Vertebrals : The right vertebral is considerably smaller in size than the left. The origin of the ri ght vertebral is not well visualized on the MRA. CONCLUSION: 1. No hemodynamically significant carotid stenosis identified. 2. Possible stenosis at the origin of the right vertebral. The right vertebral is diminutive in size . The left vert is the dominant blood supply to the posterior fossa. Percent stenosis is calculated using the diameter of the stenotic region over the diameter of the nor mal distal internal carotid artery Electronically signed by: Bassem Swanson MD 07/14/2018 2:26 [facility]
--- NOTE | 2018-07-14 14:31 | MR ---
EXAM DATE: 07/14/2018 2:17 PM EDT AGE/SEX: 87 years / Male INDICATIONS: Dizziness. TIA. CLINICAL DATA: This is the patient's subsequent encounter. Patient reports that signs and symptoms h ave been present for 2 days and indicates a pain score of 0/10. MEDICAL/SURGICAL HISTORY: Cerebrovascular disease. Diabetes. Hypertension. CABG. Appendectom y. COMPARISON: [facility], MRA HEAD W/O CONTRAST, 07/14/2018. . TECHNIQUE: Multiplanar, multisequence examination of the brain was performed without and with 10 ml G adavist (gadobutrol) contrast as a single exam dose. FINDINGS: Axial inversion recovery images demonstrate scattered areas of increased T2 signal throughout the per iventricular white matter. This is most consistent with microvascular ischemic demyelinative change. There is mild cortical atrophy. There is ventricular dilation in proportion to sulci atrophy. Diffusion restricted imaging is provided. These demonstrate a single punctate area of restricted diff usion signal within the posterior aspect of the right basal ganglia. It is possible this represents a punctate area of cortical infarct. No other areas of abnormal diffusion signal are identified. No mass lesion is identified. No findings to indicate intraparenchymal or extra-axial hemorrhage are seen. The appearance of the posterior fossa is unremarkable. CONCLUSION: 1. Cortical atrophy and microvascular ischemic demyelinative change. 2. There is a single questionable punctate area of increased diffusion signal in the basal ganglia o n the right potentially representing a punctate area of lacunar infarct. Electronically signed by: Bassem Swanson MD 07/14/2018 2:29 PM EDT
--- NOTE | 2018-07-14 15:41 | P.PNNEU ---
Subjective Active Medications: Active Medications Amlodipine Besylate (Norvasc) 10 mg PO DAILY [facility] Last Admin: 07/14/18 08:51 Dose: 10 mg Aspirin (Aspirin) 325 mg PO DAILY [facility] Last Admin: 07/14/18 08:51 Dose: 325 mg Buspirone HCl (Buspar) 5 mg PO DAILY [facility] Last Admin: 07/14/18 08:52 Dose: 5 mg Carvedilol (Coreg) 12.5 mg PO BID [facility] Last Admin: 07/14/18 08:52 Dose: 12.5 mg Dextrose (D50w Vial) 50 ml IV.PUSH UNSCH PRN PRN Reason: per Hypoglycemic Protocol Enalaprilat (Vasotec Inj) 1.25 mg IV.PUSH Q4H PRN PRN Reason: SBP> OR = 180, DBP> OR = 100 Glucagon (Glucagon Inj) 1 mg OTHER UNSCH PRN PRN Reason: per Hypoglycemic Protocol Heparin Sodium (Porcine) (Heparin Inj) 5,000 units SQ Q8H [facility] Last Admin: 07/14/18 08:53 Dose: 5,000 units Insulin Aspart (Novolog Insulin Correctional Sugar Inj) 0 unit SQ ACHS PRN; Protocol PRN Reason: Per Protocol Meclizine HCl (Antivert) 25 mg PO Q8H PRN PRN Reason: DIZZINESS Last Admin: 07/14/18 08:52 Dose: 25 mg Montelukast Sodium (Singulair) 10 mg PO DAILY@1800 [facility] Last Admin: 07/13/18 17:21 Dose: 10 mg Oxycodone/Acetaminophen (Percocet 10/325 Mg) 1 tab PO Q6H PRN PRN Reason: Pain (Scale Score 7-10) Last Admin: 07/14/18 08:53 Dose: 1 tab Pravastatin Sodium (Pravachol) 20 mg PO DAILY [facility] Sodium Chloride (Ns Flush) 2 ml IV.FLUSH PRN PRN PRN Reason: FLUSH AFTER USING IV ACCESS Timolol Maleate (Timolol 0.25% Drops) 1 drops EACH EYE BID [facility] Allergies/Adverse Reactions: Allergies Allergy/AdvReac Type Severity Reaction Status Date / Time naproxen Allergy Severe Chest Pain Verified 07/13/18 14:13 pitavastatin [From Livalo] Allergy Severe Hives Verified 07/13/18 14:20 simvastatin Allergy Severe Hiccups Verified 07/13/18 14:13 Physical Exam Vital signs: Vital Signs 07/13/18 20:00 07/13/18 21:30 07/14/18 00:00 Temperature 97.4 F L 96.8 F L Pulse Rate 68 60 Respiratory Rate 18 18 18 Blood Pressure 161/74 H 133/67 Pulse Oximetry 96 96 07/14/18 00:03 07/14/18 04:00 07/14/18 08:00 Temperature 96.2 F L Pulse Rate 56 L 56 L 63 Respiratory Rate 20 Blood Pressure 175/87 H Pulse Oximetry 95 07/14/18 12:00 Temperature 96.6 F L Pulse Rate 62 Respiratory Rate 20 Blood Pressure 136/65 Pulse Oximetry 94 L Intake & Output 07/13/18 07/14/18 07/14/18 18:59 06:59 18:59 Intake Total 1200 / 1200 Output Total 350 / 350 675 / 675 Balance -350 / -350 525 / 525 Weight 78.2 kg 78.2 kg Intake: IV 1000 / 1000 NS Inj 1,000 ML @ 70 mls/hr IV. 1000 / 1000 CONT .[id number] [facility] Rx#: [id number] Oral 200 / 200 Output: Urine 350 / 350 675 / 675 Other: Date of Last Bowel Movement 07/13/18 07/13/18 07/13/18 Weight On Admission 78.2 kg Objective Laboratory Results - last 24 hr 07/14/18 07/14/18 05:25 05:25 CBC w Diff Auto diff final WBC 7.1 RBC 4.05 L Hgb 13.5 Hct 38.6 L MCV 95.3 MCH 33.4 MCHC 35.0 RDW 13.1 Plt Count 175 MPV 8.8 Neut % (Auto) 62.8 Lymph % (Auto) 23.6 [place] % (Auto) 8.8 H Eos % (Auto) 3.8 Baso % (Auto) 1.0 Neut # (Auto) 4.4 Lymph # (Auto) 1.7 [place] # (Auto) 0.6 Eos # (Auto) 0.3 Baso # (Auto) 0.1 WBC Differential . Differential Comment . 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
[2018-07-14] MEDS: Timolol 0.25% Drops 5 ML Bottle EACH EYE SCH ×2 (16:30→21:45)
--- NOTE | 2018-07-14 17:56 | ECG ---
Date Performed: 07/13/2018 Time Performed: 14:39:04 PTAGE: 87 years EKG: Sinus rhythm MARKED LEFT AXIS DEVIATION PATTERN CONSISTENT WITH PULMONARY DISEASE MODERATE INTRAVENTRICULAR CONDU CTION DELAY ABNORMAL ECG PREVIOUS TRACING : 11/30/2013 14.09 Since the previous tracing, no significant change noted DOCTOR: Javad Renteria Interpretating Date/Time 07/14/2018 17:54:59
[2018-07-14] MEDS: Montelukast 10 MG Tablet PO SCH (18:40)
--- NOTE | 2018-07-14 20:25 | ECHRPT ---
Indication: CVA/TIA CONCLUSIONS Normal left ventricular size. Wall thickness is measured at the upper limits of normal. The left ventricular systolic function is low normal with an estimated ejection fraction in the rang e of 50- 55%. The left atrial size is upper limits of normal. Trace mitral valve regurgitation. Trace aortic valve regurgitation. There is trace tricuspid valve regurgitation. The estimated pulmonary arterial pressure is 37 mmHg. Mild pulmonary valve regurgitation. BP: / HR: Rhythm: MEASUREMENTS (Male / Female) Normal Values Technical Quality:Fair 2D ECHO LV Diastolic Diameter PLAX 4.9 cm 4.2 - 5.9 / 3.9 - 5.3 cm LV Systolic Diameter PLAX 2.9 cm IVS Diastolic Thickness 1.1 cm 0.6 - 1.0 / 0.6 - 0.9 cm LVPW Diastolic Thickness 1.1 cm 0.6 - 1.0 / 0.6 - 0.9 cm LV Relative Wall Thickness 0.4 RV Internal Dim ED PLAX 3.0 cm LVOT Diameter 2.2 cm Aortic Root Diameter 3.3 cm LA Systolic Diameter LX 3.9 cm 3.0 - 4.0 / 2.7 - 3.8 cm M-MODE AV Cusp Separation MM 2.1 cm DOPPLER AV Peak Velocity 90.9 cm/s AV Peak Gradient 3.3 mmHg LVOT Peak Velocity 58.2 cm/s LVOT Peak Gradient 1.4 mmHg AV Area Cont Eq pk 2.4 cm Mitral E Point Velocity 64.2 cm/s Mitral A Point Velocity 58.2 cm/s Mitral E to A Ratio 1.1 LV E' Lateral Velocity 12.1 cm/s Mitral E to LV E' Lateral Ratio 5.3 LV E' Septal Velocity 7.6 cm/s Mitral E to LV E' Septal Ratio 8.4 TR Peak Velocity 258.0 cm/s TR Peak Gradient 26.6 mmHg Right Atrial Pressure 10.0 mmHg Pulmonary Artery Systolic Pressu 36.6 mmHg Right Ventricular Systolic Press 36.6 mmHg PV Peak Velocity 82.8 cm/s PV Peak Gradient 2.7 mmHg FINDINGS LEFT VENTRICLE Normal left ventricular size. Wall thickness is measured at the upper limits of normal. The left ventricular systolic function is low normal with an estimated ejection fraction in the rang e of 50- 55%. RIGHT VENTRICLE Normal right ventricular size and systolic function. LEFT ATRIUM The left atrial size is upper limits of normal. RIGHT ATRIUM The right atrial size is normal. ATRIAL SEPTUM Normal atrial septal thickness without atrial level shunting by limited color doppler interrogation. AORTA The aortic root and proximal ascending aorta are normal in size on limited imaging. MITRAL VALVE Trace mitral valve regurgitation. AORTIC VALVE Trileaflet aortic valve. Trace aortic valve regurgitation. TRICUSPID VALVE There is trace tricuspid valve regurgitation. The estimated pulmonary arterial pressure is 37 mmHg. PULMONARY VALVE Mild pulmonary valve regurgitation. VESSELS The inferior vena cava is normal in size. PERICARDIUM No pericardial effusion. Shireen Rubio MD (Electronically Signed) Final Date:14 July 2018 20:24
[2018-07-15] MEDS: Heparin - SQ 10,000 UNITS/ML Vial SQ SCH ×2 (00:57→08:16)
[2018-07-15] MEDS: Aspirin 325 MG Tablet PO SCH (08:15)
[2018-07-15] MEDS: amLODIPine 10 MG Tablet PO SCH (08:15)
[2018-07-15] MEDS: Timolol 0.25% Drops 5 ML Bottle EACH EYE SCH (08:16)
[2018-07-15] MEDS: oxyCODONE/Acetaminophen 10/325 Tablet PO PRN (08:24)
--- NOTE | 2018-07-15 09:14 | P.DS ---
Date of admission: 07/13/18 15:44 Primary care physician: Mode Fox MD Attending physician on discharge: Krystle Whelan Anticipated date of discharge: 07/15/18 Brief History from admission: This is an 87-year-old male with past medical history significant for coronary artery disease with triple bypass, dyslipidemia, hypertension, and CVA. He presented to the [place] emergency room due to weakness and unsteady gait. His previous CVA overall recovered from this completely with no major residual side effects per patient and . Primary historian is patient with I had a detailed from . He reports that at this time he is feeling better. He states that his symptoms started this morning at 0300 when he got up to go to the bathroom. He felt very weak and dizzy and had to sit back down to regain his balance. He then went back to bed woke up and still continued to feel weak. Throughout the whole day today he has been having a worsening unsteady gait. And started reporting to his that he was having difficulty with feeling in the left side of his face. He also reports that his vision in his left eye had worsened as well during the day. He reports that now his symptoms are improving and he wants to get out of the hospital however he is willing to stay for further workup and to appease his . He denies any slurring of his speech. Denies any difficulty with finding words. He denies any more weakness but still does have the residual difficulty with vision in his left eye. Denies any headache, denies any lightheadedness, denies any weakness in his arms or legs at this point. Patient update on day of discharge: Patient seen and examined with present at the bedside. Patient reports his vertigo has greatly improved. He states he feels back to his normal self. He denies any slurred speech, blurry vision, chest pain, shortness of breath, nausea, or vomiting. He is tolerating PO. DS: Diagnosis - Discharge Diagnosis (1) Vertigo Status: Acute DS: Medications - Discharge Medications Prescriptions: clopidogrel [Plavix] 75 mg PO DAILY #30 tab meclizine 25 mg PO Q8H PRN #21 tab PRN Reason: Dizziness DS: Summary Hospital Course: 87 year old male with history of DM, CAD with prior CABG, HLD, HTN, and CVA with residual right sided weakness admitted 07/13 for weakness, dizziness, and unsteady gait. CT head showed diffuse atrophy but was otherwise negative. MRI was done which showed cortical atrophy and microvascular ischemic demyelinating changes as well as a single questionable punctate area in the right basal ganglia believed to be "shine through" per neurology. MRA did show 80-90% focal stenosis at the origin of the left [employer] as well as extensive atherosclerotic vascular disease. Echocardiogram showed an EF of 50-55%. He was started on Plavix by neurology. 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 He was started on meclizine and PT worked with him with improvement of his vertigo symptoms. He was discharged in stable condition on 06/18 - Time Spent with Patient Total time spent providing and/or coordinating discharge services: Less than 30 minutes - Quality: VTE Deep Vein Thrombosis/Pulmonary Embolism Present on Admission: No Exam Vital signs: Vital Signs 07/14/18 12:00 07/14/18 16:00 07/14/18 20:00 Temperature 96.6 F L 96.6 F L 98.0 F Pulse Rate 61 58 L 67 Respiratory Rate 20 20 18 Blood Pressure 136/65 151/70 H 125/67 Pulse Oximetry 94 L 94 L 96 07/15/18 00:00 07/15/18 04:00 Temperature 99.4 F 98.4 F Pulse Rate 75 77 Respiratory Rate 18 18 Blood Pressure 106/51 L 103/62 Pulse Oximetry 96 98 Intake & Output 07/14/18 07/15/18 07/15/18 18:59 06:59 18:59 Intake Total 1959 200 / 200 Balance 1959 200 / 200 Weight 78.2 kg Intake: IV 1000 / 1000 NS Inj 1,000 ML @ 70 mls/hr IV. 1000 / 1000 CONT .[id number] MARTINA Rx#: [id number] Oral 960 / 960 200 / 200 Other: # Voids 1,460 Date of Last Bowel Movement 07/13/18 07/13/18 # Bowel Movements 1 Narrative: GENERAL: WN, WD elderly male sitting up in bed in NAD. SKIN: Warm and dry. HEENT: AT/NC. Hearing aids in place. Pupils pinpoint bilaterally. MMM. NECK: Supple no tender LAD or JVD. HEART: RRR no m/r/g. LUNGS: CTAB without wheezes or crackles. ABDOMEN: +BS, soft, NT, ND. EXTREMITIES: No LE edema. Trace pedal pulses. NEURO: Awake and alert. CN II-XII intact. Left lateral gaze nystagmus. Bilateral strength 5/5. Sensation intact. Results Procedures completed during hospitalization: None Completed studies during hospitalization: 2D echocardiogram 07/14: 1. Normal LV size 2. Wall thickness measured at the upper limits of normal 3. EF 50-55% 4. Left atrial size upper limits of normal 5. Trace aortic, mitral, and tricuspid valve regurg 6. PAP 37 mmHg 7. Mild pulmonary valve regurg Labs on day of discharge: Labs from last 24 hours 07/14/18 07/14/18 05:25 05:25 Hemoglobin A1c 6.0 Triglycerides 80 Cholesterol 123 LDL Cholesterol, Calc 58 HDL Cholesterol 48.8 Cholesterol/HDL Ratio 2.52 - Impressions Head CT 07/13/18 14:19 CONCLUSION: 1. Negative CT Head non contrast except diffuse atrophy. Head MRI 07/14/18 07:04 CONCLUSION: 1. Cortical atrophy and microvascular ischemic demyelinative change. 2. There is a single questionable punctate area of increased diffusion signal in the basal ganglia on the right potentially representing a punctate area of lacunar infarct. Head MRA 07/14/18 07:04 CONCLUSION: 1. Extensive atherosclerotic vascular disease as above. 2. 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 90% stenosis of the left posterior cerebral artery and its origin 4. Nonvisualization of the A1 segment of the right anterior cerebral artery. Neck MRA 07/14/18 07:07 CONCLUSION: 1. No hemodynamically significant carotid stenosis identified. 2. Possible stenosis at the origin of the right vertebral. The right vertebral is diminutive in size. The left vert is the dominant blood supply to the posterior fossa. Discharge Plan - Discharge Disposition Patient Disposition: 01 Discharge Home - Discharge Condition Condition: Stable - Discharge Order Discharge Orders: Discharge Order (Routine); Ordered 07/15/18 Ordered By: Krystle Whelan - Discharge Details Anticipated Discharge Date: 07/15/18 - Physicians Team Primary Care Provider: Mode Fox Attending Provider: Krystle Whelan Other Providers: Javad Rivero MD
--- NOTE | 2018-07-15 10:31 | P.DCO ---
- Diagnosis (1) Vertigo Status: Acute - Physical Therapy Order: Evaluate and treat, Improve ambulation, Strength and gait training - Home Health Nursing Order: Signs/symptoms of disease process, Nursing assessment with vital signs - Case Management Consult Yes - Certification I have seen patient Perez Sin on 07/15/18. My clinical findings support the need for the requested home health care services because: Deconditioned with increased weakness, High risk of falls I certify that my clinical findings support that this patient is homebound because: Unsteady gait/balance
== END 2018-07-15 10:30 | disposition home health service (06) ==
LOC: PHEDA 14:02 → PHED 14:02 → PHEDA 17:02 → PHICU 17:04 → PH3 19:02
PROVIDERS: ADMIT Family Medicine; ATTEND Family Medicine